=== PATIENT | male | born 1985 | race Two or more races ===

== ENCOUNTER 2021-01-14 19:44 | Emergency (ER) | payer MEDICAID ==
[~2021-01-14] VITALS: Ht 157.5 cm; Wt 113.4 kg
--- NOTE | 2021-01-14 19:52 | NUR ---
pt bibself c/o of middler finger pain on left hand s/p having a tire rim fall on it. Pt [id number] breathing evenly and unlabored. EMT at bedside for wound care. Pt attached to monitor and pox.
--- NOTE | 2021-01-14 20:01 | NUR ---
pa at bedside
[2021-01-14] MEDS ORDERED: IBUPROFEN 400 MG TABLET ONE (20:14)
[2021-01-14] MEDS ORDERED: IBUPROFEN 400 MG TABLET PO ONE (20:30)
[2021-01-14] MEDS ORDERED: CEPHALEXIN MONOHYDRATE 500 MG CAPSULE PO ONE ×2 (20:53→21:00)
[2021-01-14] MEDS ORDERED: HYDR-3972 PO (21:09)
[2021-01-14] MEDS ORDERED: IBUP-1957 PO (21:09)
[2021-01-14] MEDS ORDERED: CEPH500C2 PO (21:09)
[2021-01-14 21:24] VITALS: BP 122/54
--- NOTE | 2021-01-14 21:24 | NUR ---
Patient discharged to home in stable condition. Rx And Written and verbal after care instructions given. Patient verbalizes understanding of instruction.
== END 2021-01-14 21:29 | disposition home or self-care (01) ==
LOC: ER 19:52
DX: S67.193A Crushing injury of left middle finger, initial encounter (principal); S62.633B Displaced fracture of distal phalanx of left middle finger, initial encounter for open fracture; W20.8XXA Other cause of strike by thrown, projected or falling object, initial encounter; Y93.89 Activity, other specified; Y92.89 Other specified places as the place of occurrence of the external cause; Y99.8 Other external cause status
CPT/HCPCS: 29130; 73140; 99283; A6403

== ENCOUNTER 2021-05-19 14:25 | Emergency (ER) | payer MEDICAID ==
[~2021-05-19] VITALS: Ht 157.5 cm; Wt 95.3 kg
[~2021-05-19 14:25] MED LIST: CEPH500C2 PO; HYDR-3972 PO; IBUP-1957 PO
[2021-05-19 15:35] VITALS: BP 132/73
--- NOTE | 2021-05-19 15:42 | NUR ---
THE PATIENT BIBS FOR C.O LEFT FOOT SWELLING/REDNESS 2 DAYS AGO, NO TRAUMA. RATES PAIN 6/10. NO APPARENT DEFORMITY NOTED. WILL CONTINUE TO MONITOR THE PATIENT.
[2021-05-19] MEDS ORDERED: PRED20TA PO (16:17)
[2021-05-19] MEDS ORDERED: CEPH500T PO (16:17)
[2021-05-19] MEDS ORDERED: INDO50CA92 PO (16:17)
[2021-05-19] MEDS ORDERED: ACETAMINOPHEN ES 500 MG TABLET ONE (16:19)
[2021-05-19] MEDS: ACETAMINOPHEN ES 500 MG TABLET PO ONE (16:30)
--- NOTE | 2021-05-19 16:41 | NUR ---
Patient discharged to home in stable condition. Written and verbal after care instructions given. Patient verbalizes understanding of instruction.
== END 2021-05-19 16:42 | disposition home or self-care (01) ==
LOC: ER 15:48
DX: M79.672 Pain in left foot (principal); R22.42 Localized swelling, mass and lump, left lower limb; Z79.899 Other long term (current) drug therapy
CPT/HCPCS: 73630-TC